=== PATIENT | female | born 1970 | race Caucasian/White ===

== ENCOUNTER 2024-08-07 21:46 | Observation (INO) | payer OTHER ==
--- NOTE | 2024-08-07 22:10 | ED ---
General Adult HPI - General Source: patient, RN notes reviewed Mode of arrival: wheelchair Limitations: no limitations <Mechelle Mc - Last Filed: 08/08/24 00:05> <Chastity Coto - Last Filed: 08/08/24 01:08> - General Chief complaint: Abdominal Pain Stated complaint: Abd Pain Time Seen by Provider: 08/07/24 21:53 - History of Present Illness Initial comments: 54-year-old female with no reported medical history presenting to the emergency department with chief complaint of epigastric and right upper quadrant abdominal pain that started at noon today. Patient states that she was sitting at her desk at work when the pain initiated described as a burning and stabbing sensation with radiation into her right back. Pain has persisted throughout the day despite use of Gas-X and Tums. She denies associated chest pain, difficulty breathing, nausea, or diaphoresis. Last bowel movement was earlier today. No hematochezia, melena, dysuria, hematuria. Denies previous surgical abdominal history. Denies history of CAD, hypertension, diabetes. Current smoker. (Mechelle Mc) - Related Data Allergies Allergy/AdvReac Type Severity Reaction Status Date / Time No Known Allergies Allergy Verified 08/07/24 21:50 Review of Systems ROS Other: All systems not noted in ROS Statement are negative. <Mechelle Mc - Last Filed: 08/08/24 00:05> ROS Other: All systems not noted in ROS Statement are negative. <Chastity Coto - Last Filed: 08/08/24 01:08> ROS Statement: Those systems with pertinent positive or pertinent negative responses have been documented in the HPI. Past Medical History Past Medical History: No Reported History History of Any Multi-Drug Resistant Organisms: None Reported Past Surgical History: No Surgical Hx Reported Past Psychological History: No Psychological Hx Reported Smoking Status: Vaper Past Alcohol Use History: Rare Past Drug Use History: None Reported <Mechelle Mc - Last Filed: 08/08/24 00:05> General Exam Limitations: no limitations <Mechelle Mc - Last Filed: 08/08/24 00:05> Course <Chastity Coto - Last Filed: 08/08/24 01:08> Vital Signs 08/07/24 08/07/24 21:48 23:27 Temperature 97.9 F Pulse Rate 91 68 Respiratory 18 18 Rate Blood Pressure 137/80 111/62 O2 Sat by Pulse 96 98 Oximetry - Reevaluation(s) Reevaluation #1: 08/08/24 00:59 Case discussed with on-call general surgery, Dr. Buckley who accepts admission (Chastity Coto) Medical Decision Making - Lab Data Result diagrams: 08/07/24 22:15 08/07/24 22:15 <Mechelle Mc - Last Filed: 08/08/24 00:05> - Lab Data Result diagrams: 08/07/24 22:15 08/07/24 22:15 - Radiology Data Radiology results: report reviewed, image reviewed <Chastity Coto - Last Filed: 08/08/24 01:08> - Medical Decision Making Was pt. sent in by a medical professional or institution (, PA, VAMP WETTER, urgent care, hospital, or alf...) When possible be specific @ -[No] Did you speak to anyone other than the patient for history (EMS, parent, family, police, friend...)? What history was obtained from this source @ -[No] Did you review nursing and triage notes (agree or disagree)? Why? @ -[I reviewed and agree with nursing and triage notes] Were old charts reviewed (outside hosp., previous admission, EMS record, old EKG, old radiological studies, urgent care reports/EKG's, alf records)? Report findings @ -[No old charts were reviewed] Differential Diagnosis (chest pain, altered mental status, abdominal pain women, abdominal pain men, vaginal bleeding, weakness, fever, dyspnea, syncope, headache, dizziness, GI bleed, back pain, seizure, CVA, palpatations, mental health, musculoskeletal)? @ -Differential Abdominal Pain Women: Appendicitis, Cholecystitis, diverticulosis, ischemic bowel, pancreatitis, hepatitis, UTI, gastroenteritis, AAA, incarcerated hernia, bowel obstruction, constipation, inflammatory bowel, hepatitis, peptic ulcer disease, splenic infar ction, perforated viscus, vulvitis, ovarian torsion, PID, kidney stone, placenta abruption, this is not meant to be an all-inclusive list EKG interpreted by me (3pts min.). @ -Completed at 2154 sinus rhythm with a ventricular rate of 75, MN interval 143, QRS 88, QTc 398. X-rays interpreted by me (1pt min.). @ -[None done] CT interpreted by me (1pt min.). @ -[None done] U/S interpreted by me (1pt. min.). @ -[None done] What testing was considered but not performed or refused? (CT, X-rays, U/S, labs)? Why? @ -[None] What meds were considered but not given or refused? Why? @ -[None] Did you discuss the management of the patient with other professionals (professionals i.e. , PA, VAMP WETTER, lab, RT, psych nurse, certified social workers in health care, metal alloy scientist, teacher, correctional officer sergeant, telephonic nurse case manager)? Give summary @ -[No] Was smoking cessation discussed for >3mins.? @ -[No] Was critical care preformed (if so, how long)? @ -[No] Were there social determinants of health that impacted care today? How? (Homelessness, low income, unemployed, alcoholism, drug addiction, transportation, low edu. Level, literacy, decrease access to med. care, custodial, rehab)? @ -[No] Was there de-escalation of care discussed even if they declined (Discuss DNR or withdrawal of care, Hospice)? DNR status @ -[No] What co-morbidities impacted this encounter? (DM, HTN, Smoking, COPD, CAD, Cancer, CVA, ARF, Chemo, Hep., AIDS, mental health diagnosis, sleep apnea, morbid obesity)? @ -[None] Was patient admitted / discharged? Hospital course, mention meds given and route, prescriptions, significant lab abnormalities, going to OR and other pertinent info. @ -54-year-old female presents emergency room with epigastric/abdominal pain. Overall she is well-appearing. Abdominal examination remarkable for right upper quadrant tenderness. Negative Seymour sign. She is provided with pain medication and will be evaluated via laboratory studies in addition to an ultrasound of the gallbladder. EKG is in sinus rhythm. Laboratory testing including CBC, CMP, coagulation, troponin, and urinalysis unremarkable. Ree valuation after laboratory results patient states that she is still experiencing pain as a provide additional dose of pain medication and antibiotics. Patient signed out to Chastity Coto PA-C, pending US results and disposition. Undiagnosed new problem with uncertain prognosis? @ -[No] Drug Therapy requiring intensive monitoring for toxicity (Heparin, Nitro, Insulin, Cardizem)? @ -[No] Were any procedures done? @ -[No] Diagnosis/symptom? @ -[default] Acute, or Chronic, or Acute on Chronic? @ -[default] Uncomplicated (without systemic symptoms) or Complicated (systemic symptoms)? @ -[default] Side effects of treatment? @ -[No] Exacerbation, Progression, or Severe Exacerbation? @ -[No] Poses a threat to life or bodily function? How? (Chest pain, [place], [place], pneumonia, PE, COPD, DKA, ARF, appy, cholecystitis, CVA, Diverticulitis, Homicidal, Suicidal, threat to staff... and all critical care pts) @ -[No] (Mechelle Mc) Was patient admitted / discharged? Hospital course, mention meds given and route, prescriptions, significant lab abnormalities, going to OR and other pertinent info. @ -Admitted. Patient signed out to me from previous shift Mechelle Mc PA-C pending ultrasound results and disposition. In short this is a 54-year-old female presented to the ER for epigastric/abdominal pain. Ultrasound showing findings concerning of acute cholecystitis with cholelithiasis, gallbladder wall thickening and peripheral cystic fluid. Common bile duct unremarkable. Laboratory studies and ultrasound results discussed with on-call general surger y, Dr. Buckley, who accepts admission. Medicine on consult. Patient started on IV Zosyn, blood cultures obtained. Results discussed with patient, all questions answered. Patient is agreeable for admission. Case discussed with ED attending, Dr. Elizabeth. Undiagnosed new problem with uncertain prognosis? @ -No Drug Therapy requiring intensive monitoring for toxicity (Heparin, Nitro, Insulin, Cardizem)? @ -No Were any procedures done? @ -No Diagnosis/symptom? @ -Acute cholecystitis Acute, or Chronic, or Acute on Chronic? @ -Acute Uncomplicated (without systemic symptoms) or Complicated (systemic symptoms)? @ -Complicated Side effects of treatment? @ -No Exacerbation, Progression, or Severe Exacerbation? @ -No Poses a threat to life or bodily function? How? (Chest pain, [place], [place], pneumonia, PE, COPD, DKA, ARF, appy, cholecystitis, CVA, Diverticulitis, Homicidal, Suicidal, threat to staff... and all critical care pts) @ -Yes, can lead to sepsis and/or endorgan dysfunction. (Chastity Coto) - Lab Data Lab Results 08/07/24 08/07/24 08/07/24 Range/Units 22:15 22:15 22:15 WBC 8.6 (3.8-10.6) k/uL RBC 4.26 (3.80-5.40) m/uL Hgb 12.3 (11.4-16.0) gm/dL Hct 38.5 (34.0-46.0) % MCV 90.2 (80.0-100.0) fL MCH 28.9 (25.0-35.0) pg MCHC 32.0 (31.0-37.0) g/dL RDW 12.8 (11.5-15.5) % Plt Count 218 (150-450) k/uL MPV 8.4 Neutrophils % 80 % Lymphocytes % 13 % Monocytes % 5 % Eosinophils % 1 % Basophils % 0 % Neutrophils # 6.9 (1.3-7.7) k/uL Lymphocytes # 1.1 (1.0-4.8) k/uL Monocytes # 0.4 (0-1.0) k/uL Eosinophils # 0.1 (0-0.7) k/uL Basophils # 0.0 (0-0.2) k/uL PT (10.0-12.5) sec INR (<1.2) APTT (22.0-30.0) sec Sodium 138 (137-145) mmol/L Potassium 4.2 (3.5-5.1) mmol/L Chloride 102 (98-107) mmol/L Carbon Dioxide 24 (22-30) mmol/L Anion Gap 12 mmol/L BUN 17 (7-17) mg/dL Creatinine 0.93 (0.52-1.04) mg/dL Est GFR (CKD-EPI)AfAm 82 (>60 ml/min/1.73 sqM) Est GFR (CKD-EPI)NonAf 71 (>60 ml/min/1.73 sqM) Glucose 122 H (74-99) mg/dL Plasma Lactic Acid Herman 1.1 (0.7-2.0) mmol/L Calcium 10.0 (8.4-10.2) mg/dL Magnesium 1.8 (1.6-2.3) mg/dL Total Bilirubin 0.5 (0.2-1.3) mg/dL AST 24 (14-36) U/L ALT 27 (4-34) U/L Alkaline Phosphatase 72 (38-126) U/L Troponin I (0.000-0.034) ng/mL Total Protein 7.3 (6.3-8.2) g/dL Albumin 4.6 (3.5-5.0) g/dL Amylase 62 (30-110) U/L Lipase 83 (23-300) U/L Urine Color Urine Appearance (Clear) Urine pH (5.0-8.0) Ur Specific [place] (1.001-1.035) Urine Protein (Negative) Urine Glucose (UA) (Negative) Urine Ketones (Negative) Urine Blood (Negative) Urine Nitrite (Negative) Urine Bilirubin (Negative) Urine Urobilinogen (<2.0) mg/dL Ur Leukocyte Esterase (Negative) 08/07/24 08/07/24 08/07/24 Range/Units 22:15 22:15 22:20 WBC (3.8-10.6) k/uL RBC (3.80-5.40) m/uL Hgb (11.4-16.0) gm/dL Hct (34.0-46.0) % MCV (80.0-100.0) fL MCH (25.0-35.0) pg MCHC (31.0-37.0) g/dL RDW (11.5-15.5) % Plt Count (150-450) k/uL MPV Neutrophils % % Lymphocytes % % Monocytes % % Eosinophils % % Basophils % % Neutrophils # (1.3-7.7) k/uL Lymphocytes # (1.0-4.8) k/uL Monocytes # (0-1.0) k/uL Eosinophils # (0-0.7) k/uL Basophils # (0-0.2) k/uL PT 10.7 (10.0-12.5) sec INR 1.0 (<1.2) APTT 27.1 (22.0-30.0) sec Sodium (137-145) mmol/L Potassium (3.5-5.1) mmol/L Chloride (98-107) mmol/L Carbon Dioxide (22-30) mmol/L Anion Gap mmol/L BUN (7-17) mg/dL Creatinine (0.52-1.04) mg/dL Est GFR (CKD-EPI)AfAm (>60 ml/min/1.73 sqM) Est GFR (CKD-EPI)NonAf (>60 ml/min/1.73 sqM) Glucose (74-99) mg/dL Plasma Lactic Acid Herman (0.7-2.0) mmol/L Calcium (8.4-10.2) mg/dL Magnesium (1.6-2.3) mg/dL Total Bilirubin (0.2-1.3) mg/dL AST (14-36) U/L ALT (4-34) U/L Alkaline Phosphatase (38-126) U/L Troponin I <0.012 (0.000-0.034) ng/mL Total Protein (6.3-8.2) g/dL Albumin (3.5-5.0) g/dL Amylase (30-110) U/L Lipase (23-300) U/L Urine Color Colorless Urine Appearance Clear (Clear) Urine pH 7.0 (5.0-8.0) Ur Specific [place] 1.019 (1.001-1.035) Urine Protein Negative (Negative) Urine Glucose (UA) Negative (Negative) Urine Ketones Negative (Negative) Urine Blood Negative (Negative) Urine Nitrite Negative (Negative) Urine Bilirubin Negative (Negative) Urine Urobilinogen <2.0 (<2.0) mg/dL Ur Leukocyte Esterase Negative (Negative) Disposition <Mechelle Mc - Last Filed: 08/08/24 00:05> Time of Disposition: 00:59 <Chastity Coto - Last Filed: 08/08/24 01:08> Clinical Impression: Acute cholecystitis Disposition: ADMITTED IP TO THIS [facility] Condition: Stable Referrals: Nonstaff,Physician [Primary Care Provider] - 1-2 days
[2024-08-07] MEDS: MORPHINE SULFATE 4 MG/ML SYRINGE IVP STA (22:32)
[2024-08-07 22:39] LABS: Appearance,Urine Clear (Clear); Bilirubin,Urine Negative (Negative); Blood,Urine Negative (Negative); Color,Urine Colorless; Glucose,Urine (UA) Negative (Negative); Ketones,Urine Negative (Negative); Leukocyte Esterase,Urine Negative (Negative); Nitrite,Urine Negative (Negative); Protein,Urine Negative (Negative); Specific Gravity,Urine 1.019 (1.001-1.035); Urobilinogen,Urine <2.0 mg/dL (<2.0)
[2024-08-07 22:40] LABS: Basophils % (A) 0 %; Eosinophils # (A) 0.1 k/uL (0-0.7); Eosinophils % (A) 1 %; HCT 38.5 % (34.0-46.0); HGB 12.3 gm/dL (11.4-16.0); Lymphocytes # (A) 1.1 k/uL (1.0-4.8); Lymphocytes % (A) 13 %; MCH 28.9 pg (25.0-35.0); MCV 90.2 fL (80.0-100.0); Mean Platelet Volume 8.4; Monocytes # (A) 0.4 k/uL (0-1.0); Monocytes % (A) 5 %; Neutrophils # (A) 6.9 k/uL (1.3-7.7); Neutrophils % (A) 80 %; Platelet Count 218 k/uL (150-450); RBC 4.26 m/uL (3.80-5.40); RDW 12.8 % (11.5-15.5); WBC 8.6 k/uL (3.8-10.6)
[2024-08-07 22:48] LABS: Partial Thromboplastin Time 27.1 sec (22.0-30.0); Prothrombin Time 10.7 sec (10.0-12.5)
[2024-08-07 23:02] LABS: ALT 27 U/L (4-34); AST 24 U/L (14-36); African American GFR (CKD) 82 (>60 ml/min/1.73 sqM); Albumin 4.6 g/dL (3.5-5.0); Alkaline Phosphatase 72 U/L (38-126); Amylase 62 U/L (30-110); Anion Gap 12 mmol/L; Blood Urea Nitrogen 17 mg/dL (7-17); Carbon Dioxide 24 mmol/L (22-30); Chloride 102 mmol/L (98-107); Glucose 122 mg/dL (74-99); Lipase 83 U/L (23-300); Magnesium 1.8 mg/dL (1.6-2.3); Non-African American GFR(CKD) 71 (>60 ml/min/1.73 sqM); Potassium 4.2 mmol/L (3.5-5.1); Sodium 138 mmol/L (137-145); Total Bilirubin 0.5 mg/dL (0.2-1.3); Total Protein 7.3 g/dL (6.3-8.2)
[2024-08-07] MEDS: ONDANSETRON 4 MG/2 ML VIAL IVP STA (23:35)
[2024-08-07] MEDS: HYDROmorphone 0.5 MG/0.5 ML SYRINGE IVP STA (23:36)
--- NOTE | 2024-08-08 00:23 | US ---
EXAM: US Abdomen Limited, Gallbladder CLINICAL HISTORY: ITS.REASON US Reason: epigastric and RUQ ab pain TECHNIQUE: Real-time ultrasound of the right upper quadrant with image documentation. COMPARISON: No previous studies. FINDINGS: Liver: The liver measures 17.9 cm. Minimal periportal cystic fluid. Gallbladder: A 1.2 cm a 2.1 cm gallstones are noted in the region of the neck of the gallbladder. Gallbladder wall measures 0.5 cm and is mildly thickened. Positive ultrasound Seymour sign. Common bile duct: Unremarkable as visualized. No stones. No dilation. Pancreas: Unremarkable as visualized. Right kidney: Unremarkable. Right kidney measures 10 x 4.4 x 4.2 cm. Right kidney measures are 10.47 m without renal calculus or hydronephrosis. IMPRESSION: 1. Cholelithiasis. 2. Minimal gallbladder wall thickening. 3. Peripheral cystic fluid. 4. Positive ultrasound Seymour sign. 5. This constellation of findings is worrisome for acute cholecystitis. Clinical correlation and surgical consultation are advised. 6. Common bile duct is normal in caliber. 7. Hepatomegaly.
[2024-08-08] MEDS ORDERED: HYDROmorphone 0.5 MG/0.5 ML SYRINGE IVP PRN (00:57)
[2024-08-08] MEDS ORDERED: NALOXONE 0.4 MG/ML 1 ML VIAL IV PRN (00:57)
[2024-08-08] MEDS: PIPERACILLIN-TAZOBACTAM 3.375 GM in SODIUM CHLORIDE 0.9% 100 ML IVPB SCH (01:26)
[2024-08-08] MEDS: SODIUM CHLORIDE 0.9% 1,000 ML IV SCH (04:56)
[2024-08-08] MEDS: KETOROLAC 15 MG/ML 1 ML VIAL IVP PRN (08:47)
--- NOTE | 2024-08-08 09:26 | P.CON ---
Consult Note - . Consult date: 08/08/24 Assessment/Plan:: 54-year-old female with no reported medical history presented to the [facility] emergency department with chief complaint of epigastric and right upper quadrant abdominal pain. Patient states that she was sitting at her desk at work when the pain initiated described as a burning and stabbing sensation with radiation into her right back. Pain has persisted throughout the day despite use of Gas-X and Tums. She denies associated chest pain, difficulty breathing, nausea, or diarrhea. She had a RUQ US which showed gallstones and possible GB wall thickening. Review of Systems ROS Other: All systems not noted in ROS Statement are negative. Past Medical History Past Medical History: No Reported History History of Any Multi-Drug Resistant Organisms: None Reported Past Surgical History: No Surgical Hx Reported Past Psychological History: No Psychological Hx Reported Smoking Status: Vaper Past Alcohol Use History: Rare Past Drug Use History: None Reported General Exam General-NAD CVS-RRR Lungs-NLB Abdomen-soft, minimal TTP RUQ, ND Ext- no edema 54 year old female with RUQ pain and US finding concerning for Cholecystitis -HIDA scan ordered -NPO -IV fluids -Zosyn -Pain and Nausea Control -Further recs pending JANETTE Buckley [facility] [phone]
--- NOTE | 2024-08-08 12:23 | P.CONS ---
History of Present Illness - Reason for Consult Consult date: 08/08/24 - Chief Complaint Abdominal pain - History of Present Illness 54-year-old man with medical history of being overweight, presented for evaluation of abdominal pain. Patient states that yesterday she started to experience burning type abdominal pain. This pain got worse when she tried to eat food. She tried Tums with no relief as well as Gas-X with no relief. Based on the symptoms she presented to the emergency room for further evaluation. Pain was predominantly in the right upper quadrant. Pain also radiated to epigastrium. In the emergency room, patient was afebrile, 137/80, heart rate 91, 96% on room air. CBC was unremarkable. Basic metabolic panel is unremarkable. Liver function tests are unremarkable. Amylase was 62, lipase is 83. Troponin is less than 0.012. Coags are unremarkable. Urinalysis is unremarkable. EKG demonstrated normal sinus rhythm with right axis deviation, no evidence of ischemia. Gallbladder ultrasound showed cholelithiasis with minimal gallbladder wall thickening and a positive ultrasound Seymour sign. Patient was admitted to general surgery with medicine consultation for suspected acute cholecystitis. All Systems reviewed and pertinent positives and negatives noted in HPI, all other symptoms are negative Gen: In NAD, non-toxic HEENT: normocephalic, atraumatic, hearing acuity is intant, mucous membranes moist CVS: perfusing all extremities well, no pitting edema, Respiratory: symmetric chest expansion, no accessory muscle use, GI: soft, NTTP, ND, : no suprapubic tenderness, no CVA tenderness MSK/Derm: no rashes, cyanosis Neuro: CN II-XII intact, no motor weakness, Psych: cooperative, euthymic mood, judgment and insight is intact Labs and imaging as above Assessment/plan: Right upper quadrant abdominal pain Gallbladder wall thickening -General Surgery following -Zosyn -Obtain HIDA scan to further evaluate cholecystitis -Pain control, nausea control -IV fluids Patient is full code Past Medical History Past Medical History: No Reported History History of Any Multi-Drug Resistant Organisms: None Reported Past Surgical History: No Surgical Hx Reported Additional Past Anesthesia/Blood Transfusion Reaction / Comm: no hx of transfusions Past Psychological History: No Psychological Hx Reported Smoking Status: Vaper Past Alcohol Use History: Rare Past Drug Use History: None Reported Medications and Allergies Allergies Allergy/AdvReac Type Severity Reaction Status Date / Time No Known Allergies Allergy Verified 08/07/24 21:50 Physical Exam Osteopathic Statement: *. No significant issues noted on an osteopathic structural exam other than those noted in the History and Physical/Consult. Vitals: Vital Signs Temp Pulse Pulse Resp BP BP Pulse Ox 08/08/24 07:34 97.6 F 62 16 97/64 97 08/08/24 04:35 98.3 F 71 16 106/68 92 L 08/08/24 03:00 72 16 113/71 98 08/07/24 23:27 68 18 111/62 98 08/07/24 21:48 97.9 F 91 18 137/80 96 Intake and Output 08/07/24 08/08/24 08/08/24 22:59 06:59 14:59 Other: # Voids 1 # Bowel Movements 1 Weight 82.554 kg 82.554 kg Results CBC & Chem 7: 08/07/24 22:15 08/07/24 22:15 Labs: Abnormal Lab Results - Last 24 Hours (Table) 08/07/24 Range/Units 22:15 Glucose 122 H (74-99) mg/dL
[2024-08-08] MEDS: ACETAMINOPHEN TAB 325 MG TAB PO PRN (16:47)
--- NOTE | 2024-08-09 09:15 | P.PN ---
Progress Note - Text Progress Note Date: 08/09/24 No acute events overnight. Having intermittent RUQ pain. She is having occasional nausea General Exam General-NAD CVS-RRR Lungs-NLB Abdomen-soft, minimal TTP RUQ, ND Ext- no edema 54 year old female with RUQ pain and US finding concerning for Cholecystitis -HIDA scan canceled -Low Fat Diet, NPO/midnight -Will plan for Robotic Cholecystectomy tomorrow -Zosyn -Nausea and Pain Control Hill Buckley DO [facility] [phone]
--- NOTE | 2024-08-09 09:16 | P.PN ---
Progress Note - Text Progress Note Date: 08/09/24 No acute events overnight. Having intermittent RUQ pain. She is havibf General Exam General-NAD CVS-RRR Lungs-NLB Abdomen-soft, minimal TTP RUQ, ND Ext- no edema 54 year old female with RUQ pain and US finding concerning for Cholecystitis -HIDA scan canceled -Low Fat Diet, NPO/midnight -Will plan for Robotic Cholecystectomy tomorrow -Zosyn -Nausea and Pain Control Hill Buckley DO [facility] [phone]
--- NOTE | 2024-08-09 12:49 | P.PN ---
Subjective Progress Note Date: 08/09/24 No new complaints today. Pending lap jose tomorrow per surgery. Gen: In NAD, non-toxic HEENT: normocephalic, atraumatic, hearing acuity is intant, mucous membranes moist CVS: perfusing all extremities well, no pitting edema, Respiratory: symmetric chest expansion, no accessory muscle use, GI: soft, NTTP, ND, : no suprapubic tenderness, no CVA tenderness MSK/Derm: no rashes, cyanosis Neuro: CN II-XII intact, no motor weakness, Psych: cooperative, euthymic mood, judgment and insight is intact Hospital course: 54-year-old man with medical history of being overweight, presented for evaluation of abdominal pain. In the emergency room, patient was afebrile, 137/80, heart rate 91, 96% on room air. CBC was unremarkable. Basic metabolic panel is unremarkable. Liver function tests are unremarkable. Amylase was 62, lipase is 83. Troponin is less than 0.012. Coags are unremarkable. Urinalysis is unremarkable. EKG demonstrated normal sinus rhythm with right axis deviation, no evidence of ischemia. Gallbladder ultrasound showed cholelithiasis with minimal gallbladder wall thickening and a positive ultrasound Seymour sign. Patient was admitted to general surgery with medicine consultation for suspected acute cholecystitis. Assessment/plan: Right upper quadrant abdominal pain Gallbladder wall thickening -General Surgery following -Zosyn -Obtain HIDA scan to further evaluate cholecystitis -Pain control, nausea control -IV fluids Patient is full code Objective - Vital Signs Vital signs: Vital Signs Temp 98.0 F 08/09/24 07:01 Pulse 73 08/09/24 07:01 Resp 18 08/09/24 07:01 BP 95/65 08/09/24 07:01 Pulse Ox 96 08/09/24 07:01 FiO2 Intake & Output 08/08/24 08/09/24 08/09/24 17:59 06:59 18:59 Intake Total Balance Intake: Intake, IV Titration Amount Piperacillin-Tazobactam 3 .375 gm In Sodium Chloride 0.9% 100 ml @ 25 mls/hr IVPB Q8HR [facility] Rx# :[id number] Sodium Chloride 0.9% 1, 000 ml @ 75 mls/hr IV . [id number] Rx#:[id number] Oral Other: Voiding Method # Voids # Bowel Movements - Labs CBC & Chem 7: 08/07/24 22:15 08/07/24 22:15
[2024-08-10 08:24] LABS: ALT 44 U/L (8-44); AST 27 U/L (13-35); Albumin 3.9 g/dL (3.8-4.9); Alkaline Phosphatase 83 U/L (41-126); Bilirubin, Conjugated <0.20 mg/dL (0.20-0.40); Bilirubin,Unconjugated >0.10 mg/dL (0.20-1.00); Blood Urea Nitrogen 12.1 mg/dL (9.0-27.0); Calcium 8.9 mg/dL (8.7-10.3); Carbon Dioxide 22.7 mmol/L (21.6-31.8); Chloride 108 mmol/L (96-109); Globulin 2.3 g/dL (1.6-3.3); Glucose 100 mg/dL (70-110); Potassium 4.4 mmol/L (3.5-5.5); Sodium 141 mmol/L (135-145); Total Bilirubin 0.3 mg/dL (0.3-1.2); Total Protein 6.2 g/dL (6.2-8.2)
[2024-08-10 08:59] LABS: Basophils # (A) 0.02 X 10*3/uL (0.00-0.10); Basophils % (A) 0.4 %; Eosinophils # (A) 0.24 X 10*3/uL (0.04-0.35); Eosinophils % (A) 5.1 %; HCT 36.4 % (37.2-46.3); Lymphocytes % (A) 32.1 %; MCH 29.9 pg (27.0-32.0); MCV 90.5 FL (80.0-97.0); Mean Platelet Volume 11.5 FL (9.5-12.2); Monocytes # (A) 0.42 X 10*3/uL (0.20-1.00); NRBC Per 100 WBC 0 X 10*3/uL (0.00-0.01); Neutrophils # (A) 2.47 X 10*3/uL (1.80-7.70); Platelet Count 209 X 10*3/uL (140-440); RBC 4.02 X 10*6/uL (4.10-5.20); RDW 12.8 % (11.5-14.5); WBC 4.67 X 10*3/uL (4.50-10.00)
[2024-08-10] MEDS: IV FLUID CONTINUATION 1,000 ML IV ONE (10:31)
[2024-08-10] MEDS: LACTATED RINGERS 1,000 ML BAG IV STA (10:42)
[2024-08-10] MEDS: ONDANSETRON 4 MG/2 ML VIAL IVP PRN (10:48)
[2024-08-10] MEDS: DEXAMETHASONE SOD PHOSPHATE 4 MG/ML 1 ML VIAL IVP STA (10:49)
[2024-08-10] MEDS ORDERED: LIDOCAINE 1% INJ 10MG/ML (20 ML MDV) ONE (12:05)
[2024-08-10] MEDS ORDERED: PROPOFOL 10 MG/ML 20 ML VIAL IV ONE (12:05)
[2024-08-10] MEDS ORDERED: SUCCINYLCHOLINE CHLORIDE 200 MG/10 ML VIAL IV ONE (12:05)
[2024-08-10] MEDS ORDERED: fentaNYL (PF) 50 MCG/ML 2 ML AMP ONE (12:05)
[2024-08-10] MEDS ORDERED: MIDAZOLAM 2 MG/2 ML VIAL ONE (12:05)
[2024-08-10] MEDS ORDERED: HYDROmorphone (PF) 1 MG/ML ONE (12:05)
[2024-08-10] MEDS ORDERED: GLYCOPYRROLATE 0.2 MG/ML 2 ML VIAL ONE (12:05)
[2024-08-10] MEDS ORDERED: ROCURONIUM 10 MG/ML (5 ML VIAL) IV ONE (12:05)
[2024-08-10] MEDS ORDERED: NEOSTIGMINE 1 MG/ML 10 ML VIAL ONE (12:05)
[2024-08-10] MEDS: LIDOCAINE 1%-EPI 1:100,000 20 ML VIAL SQ ONE ×2 (12:09)
--- NOTE | 2024-08-10 12:20 | P.PN ---
Subjective Progress Note Date: 08/10/24 No new complaints today. Pending lap jose today Gen: In NAD, non-toxic HEENT: normocephalic, atraumatic, hearing acuity is intant, mucous membranes moist CVS: perfusing all extremities well, no pitting edema, Respiratory: symmetric chest expansion, no accessory muscle use, GI: soft, NTTP, ND, : no suprapubic tenderness, no CVA tenderness MSK/Derm: no rashes, cyanosis Neuro: CN II-XII intact, no motor weakness, Psych: cooperative, euthymic mood, judgment and insight is intact Hospital course: 54-year-old man with medical history of being overweight, presented for evaluation of abdominal pain. In the emergency room, patient was afebrile, 137/80, heart rate 91, 96% on room air. CBC was unremarkable. Basic metabolic panel is unremarkable. Liver function tests are unremarkable. Amylase was 62, lipase is 83. Troponin is less than 0.012. Coags are unremarkable. Urinalysis is unremarkable. EKG demonstrated normal sinus rhythm with right axis deviation, no evidence of ischemia. Gallbladder ultrasound showed cholelithiasis with minimal gallbladder wall thickening and a positive ultrasound Seymour sign. Patient was admitted to general surgery with medicine consultation for suspected acute cholecystitis. Assessment/plan: Right upper quadrant abdominal pain Gallbladder wall thickening -General Surgery following -Lizziesyn -Plan is for lap jose today -Pain control, nausea control -IV fluids Patient is full code Objective - Vital Signs Vital signs: Vital Signs Temp 97.2 F L 08/10/24 10:33 Pulse 78 08/10/24 10:33 Resp 16 08/10/24 10:33 BP 121/62 08/10/24 10:33 Pulse Ox 100 08/10/24 10:33 FiO2 Intake & Output 08/09/24 08/10/24 08/10/24 18:59 06:59 18:59 Intake Total 540 Balance 540 Intake: Oral 540 Other: Voiding Method Toilet Toilet # Voids 3 5 5 # Bowel Movements 1 - Labs CBC & Chem 7: 08/10/24 03:36 08/10/24 03:36 Labs: Abnormal Lab Results - Last 24 Hours (Table) 08/10/24 08/10/24 Range/Units 03:36 03:36 RBC 4.02 L (4.10-5.20) X 10*6/uL Hct 36.4 L (37.2-46.3) % Unconjugated Bilirubin >0.10 L (0.20-1.00) mg/dL Microbiology - Last 24 Hours (Table) 08/08/24 01:12 Blood Culture - Preliminary Blood
[2024-08-10 13:03] LABS: INR 0.97 sec (0.93-1.11); Prothrombin Time 10.9 sec (9.9-11.9)
[2024-08-10] MEDS ORDERED: HYDROcodone/APAP 10-325MG 1 EACH TAB PO PRN (13:19)
[2024-08-10] MEDS: PROCHLORPERAZINE INJ 10 MG/2 ML VIAL IVP PRN (15:43)
--- NOTE | 2024-08-10 16:27 | P.OP ---
Date of Procedure: 08/10/24 Preoperative Diagnosis: Chronic Cholecystitis Postoperative Diagnosis: Chronic Cholecystitis Procedure(s) Performed: Robotic Cholecystectomy Anesthesia: MAC Surgeon: Hill Buckley Estimated Blood Loss (ml): 25 Pathology: other (Gallbladder) Condition: stable Disposition: PACU Description of Procedure: After informed consent was obtained, the patient was brought to the operating room and placed supine on the operating room table. General endotracheal anesthesia was induced. The patient was then prepped and draped in the usual sterile fashion. An #11 blade scalpel was used to make a small infraumbilical skin incision in the midline. The fascia was elevated between two [facility] clamps and then incised. A [id number] stitch of 2-0 Vicryl was placed through the fascial edges. The 11-mm port without the trocar engaged was then placed into the abdomen. A pneumoperitoneum was established. After an adequate pneumoperitoneum had been established, the laparoscope was inserted. Three additional ports were placed all under direct vision. An 11-mm port was placed in the epigastric area. Two 5-mm ports were placed in the right upper quadrant. The patient was placed in reverse Trendelenburg position and slightly rotated to the left. The fundus of the gallbladder was retracted superiorly and laterally. The infundibulum was retracted inferiorly and laterally. Electrocautery was used to carefully begin dissection of the peritoneum down around the base of the gallbladder. The triangle of Calot was carefully opened up. The cystic duct was identified heading up into the base of the gallbladder. The cystic artery was also identified within the triangle of Calot. After the triangle of Calot had been carefully dissected, a clip was then placed high up on the cystic duct near its junction with the gallbladder. The cystic artery was clipped twice proximally and once distally. Scissors were then introduced and used to make a small ductotomy in the cystic duct, and the cystic artery was divided. An intraoperative cholangiogram was obtained. This revealed good flow through the cystic duct and into the common bile duct. There was good flow into the duodenum without any filling defects. The hepatic radicals were clearly visualized. The cholangiocatheter was removed, and two clips were then placed distal to the ductotomy on the cystic duct. The cystic duct was then divided using scissors. The gallbladder was then removed up away from the liver bed using electrocaut gaston. The gallbladder was easily removed through the epigastric port site. The liver bed was then irrigated and suctioned. All dissection areas were inspected. They were hemostatic. There was not any bile leakage. All clips were in place. The right gutter up over the edge of the liver was likewise irrigated and suctioned until dry. All ports were then removed under direct vision. The abdominal cavity was allowed to deflate. The fascia at the epigastric port site was closed with a stitch of 2-0 Vicryl. The fascia at the umbilical port was closed by tying the previously placed stitch. All skin incisions were then closed with subcuticular sutures of 4-0 Monocryl and 0.25% Marcaine with epinephrine was infiltrated into all port sites. The patient tolerated the procedure well. The patient is currently being aroused from general endotracheal anesthesia. I was present during the entire case.
--- NOTE | 2024-08-11 12:06 | P.PN ---
Subjective Progress Note Date: 08/11/24 No new complaints today. Doing well s/p lap jose. Gen: In NAD, non-toxic HEENT: normocephalic, atraumatic, hearing acuity is intant, mucous membranes moist CVS: perfusing all extremities well, no pitting edema, Respiratory: symmetric chest expansion, no accessory muscle use, GI: soft, NTTP, ND, : no suprapubic tenderness, no CVA tenderness MSK/Derm: no rashes, cyanosis Neuro: CN II-XII intact, no motor weakness, Psych: cooperative, euthymic mood, judgment and insight is intact Hospital course: 54-year-old man with medical history of being overweight, presented for evaluation of abdominal pain. In the emergency room, patient was afebrile, 137/80, heart rate 91, 96% on room air. CBC was unremarkable. Basic metabolic panel is unremarkable. Liver function tests are unremarkable. Amylase was 62, lipase is 83. Troponin is less than 0.012. Coags are unremarkable. Urinalysis is unremarkable. EKG demonstrated normal sinus rhythm with right axis deviation, no evidence of ischemia. Gallbladder ultrasound showed cholelithiasis with minimal gallbladder wall thickening and a positive ultrasound Seymour sign. Patient was admitted to general surgery with medicine consultation for suspected acute cholecystitis. Assessment/plan: Right upper quadrant abdominal pain Gallbladder wall thickening -General Surgery following -Zosyn -Pt is s/p lap jose today -Pain control, nausea control -IV fluids Pt is medically cleared for discharge, no need for abx on discharge. Patient is full code Objective - Vital Signs Vital signs: Vital Signs Temp 98.1 F 08/11/24 07:05 Pulse 73 08/11/24 11:22 Resp 16 08/11/24 11:22 BP 98/62 08/11/24 07:05 Pulse Ox 93 L 08/11/24 07:05 FiO2 Intake & Output 08/10/24 08/11/24 08/11/24 18:59 06:59 18:59 Intake Total 450 Output Total 10 Balance 440 Intake: IV 450 Output: Estimated Blood Loss 10 Other: Voiding Method Toilet Toilet Toilet # Voids 1 3 3 # Bowel Movements 1 1 - Labs CBC & Chem 7: 08/10/24 03:36 08/10/24 03:36 Labs: Microbiology - Last 24 Hours (Table) 08/08/24 01:12 Blood Culture - Preliminary Blood
[2024-08-11 15:13] VITALS: BP 101/68; PULSE 86; RESP 17; TEMP 98.3
== END 2024-08-11 18:06 | disposition home or self-care (01) ==
LOC: EC 21:46 → 4SSUR 08-08 03:20
PROVIDERS: ADMIT Surgery; ATTEND Surgery
DX: K80.12 Calculus of gallbladder with acute and chronic cholecystitis without obstruction (principal); F17.290 Nicotine dependence, other tobacco product, uncomplicated; E66.3 Overweight; Z68.29 Body mass index [BMI] 29.0-29.9, adult; Z98.890 Other specified postprocedural states
CPT/HCPCS: 47562; S2900; 36415; 76705; 80048; 80053; 80076; 81003; 81025; 82150; 83605; 83690; 83735; 84484; 85025; 85610; 85730; 87040; 88304; 93005; 96361; 96374; 96375; 99285